=== PATIENT | female | born 2005 | race Caucasian/White ===

== ENCOUNTER → 2024-08-05 | Outpatient (RCR) | payer BC ==
[2024-08-03 15:48] VITALS: BP 86/43; PULSE 65; TEMP 97.6
[2024-08-03 16:34] VITALS: BP 94/56
--- NOTE | 2024-08-03 16:34 | NUR ---
IV DC'd, site wrapped with coban. She denies any further dizziness or other concerns. No s/s of med reaction. She exits dept with steady gait. Free of complaints at discharge.
[~2024-08-05] VITALS: Ht 162.6 cm; Wt 63.0 kg
[~2024-08-05] MED LIST: Iron Sucrose 200 MG in NS 100 ML Over 15 minutes (5 doses/14 Days) IV SCH
[2024-08-05 15:29] VITALS: BP 105/64; PULSE 54
== END | disposition home or self-care (01) ==
LOC: EUO
DX: D64.9 Anemia, unspecified (principal)
CPT/HCPCS: J1756